=== PATIENT | female | born 1975 | race Hispanic/Latino ===

== ENCOUNTER 2017-10-23 06:38 | Day surgery (SDC) | payer SELFPAY ==
[2017-10-20 11:31] LABS: Absolute Lymphocytes (CBC) 1.9 K/uL (0.7-4.9); Absolute Monocytes 0.4 K/uL (0.1-1.3); Absolute Neutrophil 3.6 K/uL (1.8-8.0); Basophils % 0.5 % (0-1.3); Eosinophils % 1.4 % (0-4.4); Hematocrit 40.8 % (36.0-45.0); Lymphocytes % 31.5 % (15.3-44.8); MCH 30.7 pg (27.0-35.0); MCV 92.2 fL (80-100); MPV 9.3 fL (7.6-11.3); Monocytes % 6.9 % (3.3-12.3); RBC Red Blood Cell Count 4.43 M/uL (3.86-4.86)
[2017-10-20 11:57] LABS: BUN Blood Urea Nitrogen 10 mg/dL (6-20); Bicarbonate 28 mEq/L (21-31); Glucose Level 102 mg/dL (65-120); Potassium 4.9 mEq/L (3.6-5.0); Sodium Level 139 mEq/L (135-145)
[2017-10-20 14:20] LABS: Urine Appearance CLOUDY; Urine Bilirubin NEGATIVE (NEG); Urine Blood NEGATIVE (NEG); Urine Color YELLOW; Urine Glucose NEGATIVE (NEG); Urine Protein NEGATIVE (NEG); Urine Specific Gravity 1.025 (1.005-1.030); Urine Urobilinogen 0.2 mg/dL (0.2-1.0)
[2017-10-20 15:20] LABS: Urine RBC <5 /HPF (NONE SEEN)
[2017-10-20 15:21] LABS: Urine Bacteria <20 /HPF (<20); Urine Culture Reflex Order NOT NEEDED; Urine Mucus MOD /HPF (NONE SEEN)
[2017-10-23 06:51] LABS: Specific Gravity 1.025 (1.005-1.030)
[2017-10-23] MEDS ORDERED: Ringers Lactate 1,000 ML IV ONE ×2 (06:55→10:23)
[2017-10-23] MEDS ORDERED: CEFAZOLIN/SWI 1gm 0 GM/0 ML SYR ONE (06:56)
[2017-10-23] MEDS ORDERED: PROPOFOL 200 MG/20 ML VIAL IV ONE (06:57)
[2017-10-23] MEDS ORDERED: ROCURONIUM 50 MG/5 ML VIAL IV ONE ×2 (06:58→08:34)
[2017-10-23] MEDS ORDERED: DEXAMETHASONE 10 MG/ML VIAL ONE (06:59)
[2017-10-23] MEDS ORDERED: LIDOCAINE 2% MPF 5 ML VIAL ONE (06:59)
[2017-10-23] MEDS ORDERED: CEFAZOLIN/SWI 2gm 2 GM/20 ML SYR IV SCH (07:00)
[2017-10-23] MEDS ORDERED: FENTANYL CITR 250 MCG/5 ML ONE (07:00)
[2017-10-23] MEDS ORDERED: ONDANSETRON HCL 40 MG/20 ML VIAL ONE ×2 (07:07→11:18)
[2017-10-23] MEDS ORDERED: SCOPOLAMINE HYDROBROMIDE PATCH TD ONE (07:15)
[2017-10-23] MEDS ORDERED: MIDAZOLAM HCL 2 MG/2 ML INJ ONE (07:22)
[2017-10-23] MEDS ORDERED: NA CHLORIDE 0.9% 50 ML ONE (07:24)
[2017-10-23] MEDS: NA CHLORIDE 0.9% 0 ML ONE ×2 (07:30→07:55)
[2017-10-23] MEDS: CEFAZOLIN/SWI 1gm 1 GM/10 ML SYR ONE ×2 (07:30→07:44)
[2017-10-23] MEDS ORDERED: GLYCOPYRROLATE 0.2 MG/ML SYR ONE (07:42)
[2017-10-23] MEDS ORDERED: NEOSTIGMINE 1 MG/ML -5 ML SYRINGE ONE (08:34)
[2017-10-23] MEDS ORDERED: NA CHLORIDE 0.9% 1,000 ML ONE ×2 (09:16→17:55)
[2017-10-23] MEDS ORDERED: METHYLENE BLUE 0.5% 10 ML AMP ONE (09:40)
[2017-10-23] MEDS: VASOPRESSIN 20 UNIT/ML VIAL ONE ×2 (10:05→11:14)
[2017-10-23] MEDS ORDERED: FENTANYL CITR 100 MCG/2 ML ONE (10:37)
[2017-10-23] MEDS ORDERED: KETOROLAC 30 MG/ML INJ ONE (11:01)
[2017-10-23] MEDS ORDERED: LIDOCAINE 1% W/EPI 1:100,000 MDV 50 ML VIAL ONE (11:19)
[2017-10-23 12:49] VITALS: O2SAT 100
[2017-10-23] MEDS ORDERED: HYDROCODONE/APAP 5/325 MG TAB PO PRN ×2 (14:05)
[2017-10-23] MEDS ORDERED: KETOROLAC 30 MG/ML INJ IV PRN (14:06)
[2017-10-23] MEDS ORDERED: IBUPROFEN 200 MG TAB PO PRN (14:06)
[2017-10-23] MEDS ORDERED: Morphine 2 MG/2 ML SYR IV PRN (14:07)
[2017-10-23 14:38] VITALS: BMI 36.0
[2017-10-24 05:53] LABS: Absolute Lymphocytes (CBC) 1.9 K/uL (0.7-4.9); Absolute Neutrophil 8.3 K/uL (1.8-8.0); Basophils % 0.4 % (0-1.3); Eosinophils % 0.1 % (0-4.4); Hematocrit 34.5 % (36.0-45.0); Lymphocytes % 16.6 % (15.3-44.8); MCV 90.9 fL (80-100); MPV 9.1 fL (7.6-11.3); Monocytes % 8.7 % (3.3-12.3); RBC Red Blood Cell Count 3.79 M/uL (3.86-4.86)
[2017-10-24 09:07] VITALS: BP 127/76; TEMP 98.9
--- NOTE | 2017-12-15 18:46 | OP ---
Date of Procedure: 10/23/2017 Surgeon: Bessie Maxwell MD Records Supervisor: Nohelia Grigsby. Preoperative Diagnoses: Uterine prolapse, heavy menstrual bleeding (menorrhagia, AUB-L) rectocele an d perineal defect. Postoperative Diagnoses: Menorrhagia, uterine prolapse, stage II rectocele stage II posterior entero noam and perineal and perineocele along with an anal sphincter defect. Procedures Performed: Total laparoscopic hysterectomy, bilateral salpingectomy and lysis of adhesion s, uterosacral ligament suspension colpopexy, rectocele repair, posterior enterocele repair, perineop lasty including external sphincter repair, cystoscopy. Anesthesia: General. Estimated Blood Loss: 200. Urine Output: 200. Complications: No complications. Drains: Roberts, vaginal packing. Condition: The patient's condition stable. Findings: 1.POP-Q is as follows -1, - 2, +1 thigh pain, 0- 1- 1, left sigmoid adhesions, large defect in the p erineal body and external sphincter, which were repaired. A 41-year-old presented with uterine prolapse and heavy bleeding. She was evaluated. Her transvagin al ultrasound was done, small fibroids. Endometrial sampling was done. No evidence of any cancer. The patient was 41 at the time and the uterine prolapse was bothersome to her as well as the rectocel e. So, after she was completely evaluated, all the alternatives were discussed. She was consented f or a total laparoscopic hysterectomy, bilateral salpingectomy for treatment of her menorrhagia since we were already going to do a vaginal apical procedure with suspension, uterosacral ligament suspensi on, colpopexy bilaterally and for the vaginal defect, rectocele repair, posterior enterocele repair a nd perineorrhaphy were all discussed, and the patient was consented. The patient was brought to the OR, next preoperatively consent was re-verified, and she was taken back to the OR, placed in supine f ashion on the operating table. After general anesthesia was given and 1 g of Ancef was given, she wa s placed in a dorsal lithotomy position using Rodney stirrups. Pelvic exam was performed POP-Q is as above confirmed. At this time, the perineal defect on rectovaginal exam was extremely evident and it also appeared marion t she had discontinuation of her external anal sphincter on exam, so plan was to perform all these pr ocedures, starting with laparoscopic hysterectomy. Abdomen, vulva, vagina, and perineum were prepped and draped in a sterile fashion for both abdominal and vaginal procedures. Then, a large VCare was introduced into the uterus and fixed in place. Fole y placed in the bladder and attached to cysto tubing for retrograde filling and was connected to an L R bag. This area was then draped. A 1 cm infraumbilical incision was made with a scalpel using the open laparoscopy technique. The fascia was incised, tagged, and peritoneum was entered bluntly and H asson was introduced. Site of entry was checked, unremarkable. The patient was placed in T-jr aft er surveying the upper abdominal surface, which were unremarkable. The uterus appeared to be enlarge d. Tubes unremarkable. Ovaries unremarkable. There were sigmoid adhesions to the left lateral wall , so these were to be taken down first before the suspension was done. The ureter on the right side was traced from the pelvic brim to the ureteric tunnel. There was no anatomical distortion. A 10 mm suprapubic, 5 mm left lower quadrant and another 5 mm right lower quadrant ports were placed under direct vision. The sigmoid adhesions were taken down with sharp dissection with scissors all t he way to the natural attachment of the left pelvic brim. Cautery was used as needed for hemostasis. After the left ureter was checked, its anatomical location was undistorted. Then, the uterosacral li gaments were traced from the level of the ischial spine all the way to the uterosacral attachments to the vaginal apex posteriorly. These appeared to be really lax, however now taking down the sigmoid has helped me to evaluate this better than to be able to identify it superiorly so that this can be p licated and attached to the apex. Hysterectomy was started with a 5 mm LigaSure, the round ligament, broad ligament were all taken down . The bladder flap was raised in the usual fashion anteriorly by opening up the anterior pelvic ronak toneum and the broad ligament. The peritoneal incision was taken all the way to the round ligament o n the right side. Then, the fallopian tube, mesosalpinx, utero-ovarian ligament were all taken down and the posterior peritoneum was dissected all the way to the level of the VCare cup. The broad lig ament was skeletonized to expose the vessels on the opposite side, similar dissection was performed t o take down the utero-ovarian, mesosalpinx tube, round ligament, posterior broad ligament to the VCar e cup and on the anterior aspect of the bladder flap connected. The broad ligament was taken down wi th the LigaSure to skeletonize the vessels anteriorly, opened up the vesicovaginal space with a monop olar hook blade, taking down the here before the bladder and the bladder was dissected all the way down at least exposed 4 cm of the vagina. Then, the vessels were taken down. Cardinal ligaments were taken on the right side than on the left side with the help of the LigaSure and the bipolar basket tip. Once these were done, circumferential colpotomy was performed with a monopolar hook blade without any problems. The specimen is eased out through the vagina. There was a tight fit. I was able to be removed without problems. Both the tubes were then taken down with the help of the 5 mm LigaSure and the handed out for specime ns. Vaginal occluder bulb was placed, then I went on to perform 2 angle stitches with 0 Vicryl in th e vaginal cuff and the uterosacral ligament was picked up and down to perform the continuous running suture through the left uterosacral first from lateral to medial, starting about 2 cm inferior to the level of the ischial spine to 3 cm inferior to it in all the way this was plicated with a 0 PDS on a CT1 needle. The posterior rectovaginal fascia was taken, then anteriorly the precervical anterior v aginal wall fascia was taken with a jilwxw-[id number]-mehbl was placed here passing through the apex. Again, this was held on a clamp. A similar suture was placed on the opposite side without any problems and it was tied down first then the left one was tied and the rest of the vaginal cuff was closed with t he help of a 0 Vicryl in a [id number] fashion x2. Once all, this was completed, then I moved do wn to the cystoscopy. The Roberts was removed, cystoscopy was performed. There was good efflux of uri ne from both ureteric orifices. No evidence of any injury to the any foreign body in the bladder. T he bladder was drained. Roberts was replaced, clamped and capped. The gloves were changed. [facility] looked at the suspension. There was an excellent suspension. I did not do a culdopla sty here since I was going to do the enterocele repair from below. The trocars were removed. Gas was desufflated. All the ports were hemostatic. Fascia at the umbili cus was closed with a [id number]-[id number] and at the suprapubic area with a simple 0 Vicryl stitch. All the skin incisions closed with interrupted 4-0 Monocryl. Vaginally, the rectocele repair was started. Two Allis clamps were placed on both sides of the vesti bule. Then, a triangular skin incision was made on the perineum with the help of a 15 blade and this was excised. We went on to inject the posterior vaginal wall perineum with dilute vasopressin 20 un its mixed in 50 cc of normal saline and once all this was done all the way to the apex. Then, the pr ocedure was started. The posterior compartment was entered, and it was raised all the way up to the top. The vaginal epithelium and sub-epithelium were dissected away at the level of the perineum firs t, the skin was dissected away from the perineal body, or the remnant of the perineal body. There wa s no perineal body intact, just scar tissue was seen. This was cleared up and laterally dissected to expose the distal part of the transverse perineum and the sphincter muscles were to be dissected and picked up with Allis clamps later for repair. Superiorly, the rectovaginal septum was taken down, and there was an apical defect, and there was als o lateral defect on the left going all the way up, so plan was to after the enterocele was completely dissected away and this was closed with the help of 3-0 Vicryl sutures in a pursestring fashion x2 t o reduce the entire enterocele posterior enterocele and a left-sided attachment defect was sutured ba ck with the help of a continuous running 2-0 Vicryl to gain the lateral attachment. In superiorly, t he rectovaginal septum away is attached to the resuspended apex with the help of 2-0 Vicryl sutures i nterrupted x3. The vaginal apex was at -7. The rectovaginal septum an attenuated in the lower part. This was plicated with help of 2-0 Vicryl sutures x2, then the perineal body repair was undertaken. With the finger in the vagina for the deep transverse perinei were held with Allis clamps and I place d 2-0 Vicryl sutures through this from the end to end taking a large by then 3 such sutures were plac ed in all these were held on clamps. Once this was all done, then the external sphincter was identif ied. Gloves were changed. Allis clamps were placed on the remnants of this and brought these togeth er. There was no way I could overlap it so end to end closure was done with the help of the same sut ure placed 2 stitches to bring it together and when doing repair, my rectal exam just appeared to be well rebuilt. Once we had the all the 5 sutures were tied down, then went on to trim little bit of t he vaginal mucosa to clear the old scar. Then, vaginal mucosa was closed. The vaginal epithelium wa s closed from the top from the apex with 2-0 Vicryl in a continuous running locked fashion all the wa y to the vestibule. Then, 3-0 Vicryl was taken, and this was used to resuture the perineum in a subc utaneous and subcuticular fashion. There was an excellent perineal body after this was built and the sphincter also appeared to have been reconstructed. Sphincter appeared to the appeared to be intact now. The rectal exam was performed again. No evidence of any foreign body or trauma here, and the patient was cleaned up. Roberts catheter was left in place. Packing was done. She was recovered from anesth esia after instrument, needle, and sponge counts x3 were correct in the case. The patient tolerated the procedure well. She was sent to recovery and then to the floor for overnight outpatient observat ion. NATHAN/JONATAN Voice ID: [id number] Report ID: [id number]
== END 2017-10-24 10:30 | disposition home or self-care (01) ==
LOC: OR 06:38 → 2ND-WC 13:15 → OR 10-24 10:30
PROVIDERS: ATTEND Obstetrics & Gynecology
PROC: 0UT74ZZ Resection of Bilateral Fallopian Tubes, Percutaneous Endoscopic Approach (ICD-10-PCS; 2017-10-23)
PROC: 0USG7ZZ Reposition Vagina, Via Natural or Artificial Opening (ICD-10-PCS; 2017-10-23)
PROC: 0JQC0ZZ Repair Pelvic Region Subcutaneous Tissue and Fascia, Open Approach (ICD-10-PCS; 2017-10-23)
PROC: 0UQF0ZZ Repair Cul-de-sac, Open Approach (ICD-10-PCS; 2017-10-23)
PROC: 0WQNXZZ Repair Female Perineum, External Approach (ICD-10-PCS; 2017-10-23)
PROC: 0UT94ZZ Resection of Uterus, Percutaneous Endoscopic Approach (ICD-10-PCS; principal; 2017-10-23 07:30)
DX: N81.2 Incomplete uterovaginal prolapse (principal); N81.81 Perineocele; N92.0 Excessive and frequent menstruation with regular cycle
CPT/HCPCS: 36415; 80048; 81001; 81025; 85025; 86850; 86900; 86901; 88305; 88307; J0690; J1100; J2250; J2270; J2405; J2710; J3010; J7030